=== PATIENT | female | born 1955 | race Caucasian/White ===

== ENCOUNTER → 2016-11-06 | Outpatient (CLI) | payer BC ==
--- NOTE | 2016-11-07 11:02 | RADIOLOGY REPORT PS360 ---
MRI-BRAIN W/O HISTORY: Headache, memory loss HEADACHE DISORDER, MILD COGNITIVE IMPAIRMENT ORDERING PHYSICIAN: Jose Cornejo MD PATIENT AGE: 61 years COMPARISON: None TECHNIQUE: Standard multiplanar multiecho sequences are performed without contrast. FINDINGS: No midline shift, mass effect, intracranial hemorrhage, or hydrocephalus. There are scattered periventricular and subcortical T2 white matter hyperintensities which are nonspecific and may be seen with ischemic gliotic change from microvascular disease. Differential diagnosis includes migraine headache as well as demyelinating process. There is mild degree of cortical atrophy. No evidence of acute infarction. No abnormal restricted diffusion. The cerebellopontine angles, cerebellum, and brainstem are unremarkable. The patellar marshall, optic chiasm, and corpus callosum have an unremarkable appearance. If clinical gyri are unremarkable in the temporal horns are symmetric. No mastoid effusion or sinus air-fluid level. IMPRESSION: 1. No acute intracranial findings. 2. Nonspecific periventricular and subcortical T2 white matter hyperintensities which may be due to ischemic gliotic change. Differential diagnosis would include migraine headache as well as demyelinating process.
== END ==
LOC: RAD 12:55
DX: R51 Headache (principal); G31.84 Mild cognitive impairment of uncertain or unknown etiology